=== PATIENT | male | born 1950 | race Caucasian/White ===

== ENCOUNTER 2024-08-10 09:12 | Emergency (ER) | payer MEDICARE, BC, SELFPAY ==
--- OUTSIDE RECORDS SUMMARY | 2024-08-10 09:16 | XMS_ITS | Clinical Summary ---
Author Organization [facility] Address [address] [place] [address] Care Team Providers Care Database Developer Name Role Phone Armando Clark MD Primary Care Provider [phone] Allergies Active Allergy Reactions Criticality Noted Date Comments Atenolol Bradycardia 11/05/2009 Medications multivitamin (MVI) tablet Take 1 tablet by mouth once daily. 0 01/06/20 14 Active Calcium carbonate (OYSTERSHELL CALCIUM) 500 mg tabletIndications :Vitamin D deficiency Take 1 tablet by mouth once daily. 0 12/14/19 15 Active b complex vitamins (VITAMIN B COMPLEX) capsule Take 1 capsule by mouth once daily. 0 06/29/19 18 Active sennosides (SENNA) 8.6 mg tabletIndications :Other constipation Take 1 tablet by mouth once daily. 0 10/27/19 18 Active polyethylene glycol (MIRALAX) 17 g powder for solutionIndicatio ns:Other constipation Take 17 g by mouth once daily if needed for Constipation. 0 10/27/19 18 Active cholecalciferol (Vitamin D) 1,000 unit tabletIndications :Vitamin D deficiency Take 1 Tablet (1,000 units) by mouth once daily. 0 07/02/19 22 Active albuterol-ipratro pium (DUONEB) (2.5-0.5 mg) in 3 mL NEBULIZATION solutionIndicatio ns:COPD with chronic bronchitis (HC) Inhale 3 mL via a nebulizer every 6 hours if needed for Wheezing 1st choice. Use at least twice daily. 180 mL 3 08/19/19 22 Active diphenhydrAMINE (BENADRYL) 50 mg capsule Take 1 Capsule (50 mg) by mouth every 6 hours if needed. 0 09/09/19 22 Active docusate (COLACE) 100 mg capsule Take 1 Capsule (100 mg) by mouth 2 times daily if needed for Constipation. 0 01/27/20 22 Active lidocaine (Blue-Emu Lidocaine Patch) 4 % topical patch Apply to intact skin to cover most painful area for max 12hr per 24hr period. 0 01/27/20 22 Active ascorbic acid, vitamin C, (Vitamin C) 500 mg tablet Take 1 Tablet (500 mg) by mouth once daily. 0 07/09/19 23 Active medication order composer Oxygen concentrator Given by Dr. Nicholson, per patient, while at the hospital 0 07/09/19 23 Active HYDROcodone-aceta minophen (5-325 mg/tablet)Indicat ions:Chronic midline low back pain without sciatica Take 1 Tablet by mouth every 4 hours if needed for Pain. Max acetaminophen dose: 4000mg in 24 hrs. 30 Tablet 03/17/19 24 Active apixaban (ELIQUIS) 5 mg tabletIndications :New onset atrial fibrillation (HC) Take 1 Tablet (5 mg) by mouth two times daily. 180 Tablet 3 01/31/20 24 Active allopurinoL (ZYLOPRIM) 300 mg tabletIndications :Gouty arthritis of toe Take 1 Tablet (300 mg) by mouth once daily. 90 Tablet 3 01/31/20 24 Active atorvastatin (LIPITOR) 10 mg tabletIndications :Other hyperlipidemia Take 1 Tablet (10 mg) by mouth at bedtime. 90 Tablet 3 01/31/20 24 Active dilTIAZem CD (CARDIZEM CD) 180 mg extended release 24 hr capsuleIndication s:New onset atrial fibrillation (HC) Take 1 Capsule (180 mg) by mouth once daily. 90 Capsule 3 01/31/20 24 Active levothyroxine (SYNTHROID) 100 mcg tabletIndications :Other specified hypothyroidism Take 1 Tablet (100 mcg) by mouth before breakfast. 90 Tablet 3 01/31/20 24 Active losartan (COZAAR) 100 mg tabletIndications :Essential hypertension Take 1 Tablet (100 mg) by mouth once daily. 90 Tablet 3 01/31/20 24 Active meloxicam (MOBIC) 7.5 mg tabletIndications :Primary osteoarthritis of both wrists Take 1 Tablet (7.5 mg) by mouth once daily. 90 Tablet 3 01/31/20 24 Active potassium chloride (KLOR-CON M20) 20 mEq extended-release tablet (part/cryst)Indic ations:New onset atrial fibrillation (HC) Take 1 Tablet (20 mEq) by mouth two times daily with meals. 180 Tablet 3 01/31/20 24 Active terazosin (HYTRIN) 5 mg capsuleIndication s:Essential hypertension Take 1 Capsule (5 mg) by mouth once daily in the morning. 90 Capsule 3 01/31/20 24 Active triamterene-hydro chlorothiazide, 75-50 mg, (MAXZIDE) 75-50 mg tabletIndications :Essential hypertension Take 1 Tablet by mouth once daily in the morning. 90 Tablet 3 01/31/20 24 Active CPAPIndications:O SA on CPAP RESMED CPAP (E0601) machine for home use at pressure: 12.6 cmw, Choice of mask (A7030 or A7034) w/full face cushion (A7031) x1/mo, nasal cushion (A7032) x2/mo, or nasal pillows (A7033) x 2/mo; Length of Need: 99 months; Frequency of use: Daily 1 Each 04/25/19 25 Active torsemide 10 mg tabletIndications :New onset atrial fibrillation (HC) Take 1 Tablet (10 mg) by mouth once daily. 90 Tablet 08/10/19 25 Active torsemide (DEMADEX) 10 mg tabletIndications :New onset atrial fibrillation (HC) Take 1 Tablet (10 mg) by mouth once daily. 90 Tablet 3 01/31/20 24 025 Discontin ued(*Avai lability/ Formulary change/Co st of medicatio n) Active Problems Problem Noted Date Diagnosed Date Chronic systolic congestive heart failure 2022 Longstanding persistent atrial fibrillation 12/31 Overview (07/08/2022): Started in 2020. COPD with chronic bronchitis 07/09/2021 J LUIS 03/14/2003 AHI-118 05/17/2017 Hypothyroidism (acquired) 06/11/2016 Status post total hip replacement, right 016 Primary osteoarthritis of right hip 10/29/2015 Controlled substance agreement signed 09/26/2015 Overview (01/31/2016): Prescriber: Dr. Cachorro Hogue, Secondary Dr. Eric Sanchez Ok to fill at same amount/dose/frequency in my absence. Controlled substance agreement: 09/26/15 [employer]ie [employer] query on 01/30/16 was acceptable. Last UDS on (none on file). Elevated TSH 08/01/2015 Primary osteoarthritis of both knees 08/01/2015 Morbid obesity 12/13/2014 Gouty arthritis of toe 12/13/2014 Vitamin D deficiency 12/13/2014 Mixed hyperlipidemia 08/14/2010 Back pain 10/09/2009 Unspecified venous (peripheral) insufficiency Dermatophytosis of the body 07/13/2006 Essential hypertension Unspecified sleep apnea Resolved Problems Problem Noted Date Diagnosed Date Resolved Date Anticoagulation monitoring, special range 11/25/2015 12/09/2015 Essential hypertension, benign 12/13/2014 10/29/2015 Gout, unspecified 04/29/2009 12/13/2014 Bundle branch block, unspecified 07/13/2006 11/07/2009 Overview (07/13/2006): incomplete bundle brand block Tobacco use disorder 007 Encounters Date Type Department Care Team Description 08/09/2024 Telephone [facility] [address] [place] [address] Armando Clark MD Refill Request (Hytrin) from Last 3 Months Immunizations Immunization Administration Dates Next Due COVID-19 VACCINE SPIKEVAX (M ODERNA 50MCG/0.5ML) 12YO+ PFS 03/17/2023 COVID-19 vaccine (Moderna Toribio hermes 50mcg/0.25mL) PF, MDV 12/22/2021 COVID-19 vaccine (Pfizer-Bio NTech 30mcg/0.3mL) 12YO+ ABENA-SUCROSE PF, MDV 07/01/2021 COVID-19 vaccine (Pfizer-Bio NTech 30mcg/0.3mL) PF, MDV 12/18/2020,05/24/2020,05/03/2020 Hepatitis B, Unspecified 12/05/1990,06/13/1990,0 05/09/1990 Influenza, High-dose Inactivated 12/13/2023,11/29 Influenza, High-dose Quadriv alent Inactivated 12/01/2022,12/03/2021,11/22/2020,2019 Influenza, IIV3 (Age >=3 years) 12/29/19 13,11/27/2011,12/05/2009,2008,11/14/2008,12/12/2007,04/05/2006 Influenza, IIV4 12/03/2014 Influenza, Inactivated AIIV4 (Age 65+ Years) Preserv Free 12/08/2021 Influenza, Inactivated IIV3 (Age 65+ Years) Preserv Free 11/14/2018,03/11/2017 Pneumococcal Poly,23-Valent (Pneumovax) 11/14/2018 Pneumococcal conj 13-Valent (Prevnar 13) 08/01/2015 Td (Age >=7 Years) 04/05/2006 Tdap 02/10/2012 Tuberculin (PPD) 03/10/2007 Zoster (Zostavax-ZVL, live) 12/28/2012 Family History Medical History Relation Name Comments Good Health Brother Heart Disease Father at 55 fro m [place] Cancer Mother unknown Good Health Mother Relation Name Status Comments Brother Father (Age 55) [place] Mother (Age 85) Paternal Grandfather (Age 53) sharon ng ca Paternal Uncle (Age 50s) lung ca Social History Tobacco Use Types Packs/Day Years Used Date Smoking Tobacco: Former Cigarettes 1 32 1 971 - 03/01/2002 Smokeless Tobacco: Never Tobacco Cessation:Counseling Given: Not Answered Alcohol Use Standard Drinks/Week Comments Yes 9 (1 standard drink = 0.6 oz pure alcohol) Wednesday, Wednesday, Wednesday (1 beer and 2-3 drinks) PHQ-2 Answer Date Recorded PHQ-2 TOTAL SCORE 0 03/17/2023 Social Connections Answer Date Recorded Do you often feel lonely or isolated from those around you? 0 03/17/2023 Alcohol Use Answer Date Recorded How often do you have a drink containing alcohol ? 3 03/17/2023 How many drinks containing a lcohol do you have on a typical day when you are drinking? 1 03/17/2023 How often do you have five or more drinks on one occasion? 0 03/17/2023 Financial Resource Strain Answer Date R ecorded Difficulty of Paying Living Expenses 3 03/17/2023 Difficulty of Paying Living Expenses Not on file 03/17/2023 Food Insecurity Answer Date Recorded Do you worry your food will run out before you are able to buy more? 1 03/17/2023 Transportation Needs Answer Date Record ed Does lack of transportation keep you from medica l appointments? 1 03/17/2023 Does lack of transportation keep you from work, meetings or getting things that you need? 1 03/17/2023 Housing Stability Answer Date Recorded What is your housing situation today? 1 03/17/2023 Utilities Answer Date Recorded Do you have trouble paying f or utilities (for example, heat, electricity, water, phone)? 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[employer] Not on file N ot on file Not on file Obstetrics History Last Filed Vital Signs Vital Sign Reading Time Taken Comments Blood Pressure 133/70 04/25/2024 10:27 AM TIME LOCK EXPERT Pulse 87 04/25/2024 10:27 AM TIME LOCK EXPERT Temperature 36.3 C (97.3 F) 01/31/2024 11:12 AM TIME LOCK EXPERT Respiratory Rate - - Oxygen Saturation 95% 04/25/2024 10: 27 AM TIME LOCK EXPERT Inhaled Oxygen Concentration - - Weight 171.7 kg (378 lb 9.6 oz) 024 11:06 AM TIME LOCK EXPERT Height 168.9 cm (5' 6.5) 09/22/2023 7:53 AM CDT Body Mass Index 60.19 09/22/2023 7:53 AM CDT Plan of Treatment Health Maintenance Due Date Last Done Comments RSV vaccine for adults or (1 - Risk 60-74 years 1-dose series) 2010 Zoster (shingles) series for age 50+ (2 of 3) 02/22/2013 12/28/2012 AAA screening age 65-74 06/13/2015 Medicare Wellness for age 65+ 06/13/2015 Tetanus booster 02/09/2022 02/10/2012, 04/05/2006 Depression screening for age 12+ 03/17/2024 03/17/2023, 01/28/2022, 01/26/2022, Additional history exists COVID-19 vaccine series (2023- season) 2024 01/18/2024, 03/17/2023, 12/22/2021, Additional history exists BMI (ht and wt on same day) for age 18+ 09/21/2024 09/22/2023, 03/09/2023, 07/08/2022, Additional history exists Fecal testing sDNA-FIT ([place] guard) for age 45-75 07/27/2025 07/27/2022 Lipids for age 45-75 01/19/2029 01/20/2024, 03/09/2023, 06/23/2022, Additional history exists Hepatitis B series for 19+ Completed 12/05, 06/13/1990, 05/09/1990 Tdap Completed 02/10/2012 Hepatitis C screening for ag e 18-79 Completed 11/14/2018 Pneumococcal series for age 50+ Completed 9, 08/01/2015 Influenza Vaccine Completed 12/13/2023, , 11/14/2018, Additional history exists Procedures Procedure Name Priority Date/Time Associated Diagnosis Comments LIPID PANEL W REFLEX MEASURED LDL Routine 01/20/2024 11:35 AM TIME LOCK EXPERT Mixed hyperlipidemia SDNA-FIT EXTERNAL (COLOGUARD) Routine 07/27/2022 10:00 PM CDT Screening for colon cancer ANTI HCV Routine 11/14/2018 3:10 PM CDT Need for hepatitis C screening test from Last 3 Months or Most Recently Relevant to Health Maintenance Results * LIPID PANEL W REFLEX MEASURED LDL (01/20/2024 11:35 AM TIME LOCK EXPERT) CHOLESTEROL, TOTAL 124 <200 mg/dL [facility] HDL CHOLESTEROL 45 > OR = 40 mg/dL [facility] TRIGLYCERIDES 134 <150 mg/dL [facility] LDL-CHOLESTEROL 57 mg/dL (calc) [employer] Comment: Reference range: <100 Desirable range <100 mg/dL for primary prevention; <70 mg/dL for patients with CHD or diabetic patients with > or = 2 CHD risk factors. LDL-C is now calculated using the Pelon calculation, which is a validated novel method providing better accuracy than the Friedewald equation in the estimation of LDL-C. Santo SS et al. JEANNIE. 2013;310(19): 4225-9413 (http://education.Twitpay/faq/WYF356) CHOL/HDLC RATIO 2.8 <5.0 (calc) [employer] lowell Benz NON HDL CHOLESTEROL 79 <130 mg/dL (calc) [employer]z Comment: For patients with diabetes plus 1 major ASCVD risk factor, treating to a non-HDL-C goal of <100 mg/dL (LDL-C of <70 mg/dL) is considered a therapeutic option. Blood BLOOD SPECIMEN / Unknown 01/20/2024 11:35 AM TIME LOCK EXPERT 01/20/2024 11:36 AM TIME LOCK EXPERT us Armando Clark MD CHEMISTRY Final Resu lt [facility] [address] [place] [address], [facility] [address] [place] [address] * SDNA-FIT EXTERNAL (COLOGUARD) (07/27/2022 10:00 PM CDT) NONINV COLON CA DNA+OCC BLD SCRN STL-IMP Negative Negative 08/03/2022 8:50 AM CDT [facility] (CLIA #:[id number]) Comment: NEGATIVE TEST RESULT. A negative Cologuard result indicates a low likelihood that a colorectal cancer (CRC) or advanced adenoma (adenomatous polyps with more advanced pre-malignant features) is present. The chance that a person with a negative Cologuard test has a colorectal cancer is less than 1 in 1500 (negative predictive value >99.9%) or has an advanced adenoma is less than 5.3% (negative predictive value 94.7%). These data are based on a prospective cross-sectional study of 10,000 individuals at average risk for colorectal cancer who were screened with both Cologuard and colonoscopy. (Linda Douglas al, N Engl J Med 2014;370(14):5660-5745) The normal value (reference range) for this assay is negative. COLOGUARD RE-SCREENING RECOMMENDATION: Periodic colorectal cancer screening is an important part of preventive healthcare for asymptomatic individuals at average risk for colorectal cancer. Following a negative Cologuard result, the [place] [employer] Society and U.S. Multi-Society Task Force screening guidelines recommend a Cologuard re-screening interval of 3 years. References: [place] [employer] Guideline for Colorectal Cancer Screening: https://www.cancer.org/cancer/xsimz-vztnaf-npodnu/zepaulvla-ntjgzwtxh-nwlwsxe/ac s-rec ommendations.html.; Giovani DK, Cheyenne ZEPEDA, Nicolette RizoK, Colorectal Cancer Screening: Recommendations for Physicians and Patients from the U.S. Multi-Society Task Force on Colorectal Cancer Screening , Am J Gastroenterology 2017; 112:0145-3289. TEST DESCRIPTION: Composite algorithmic analysis of stool DNA-biomarkers with hemoglobin immunoassay. Quantitative values of individual biomarkers are not reportable and are not associated with individual biomarker result reference ranges. Cologuard is intended for colorectal cancer screening of adults of either sex, 45 years or older, who are at average-risk for colorectal cancer (CRC). Cologuard has been approved for use by the U.S. FDA. The performance of Cologuard was established in a cross sectional study of average-risk adults aged 50-84. Cologuard performance in patients ages 45 to 49 years was estimated by sub-group analysis of near-age groups. Colonoscopies performed for a positive result may find as the most clinically significant lesion: colorectal cancer [4.0%], advanced adenoma (including sessile serrated polyps greater than or equal to 1cm diameter) [20%] or non- advanced adenoma [31%]; or no colorectal neoplasia [45%]. These estimates are derived from a prospective cross-sectional screening study of 10,000 individuals at average risk for colorectal cancer who were screened with both Cologuard and colonoscopy. (Linda Kelly et al, N Engl J Med 2014;370(14):1590-5708.) Cologuard may produce a false negative or false positive result (no colorectal cancer or precancerous polyp present at colonoscopy follow up). A negative Cologuard test result does not guarantee the absence of CRC or advanced adenoma (pre-cancer). The current Cologuard screening interval is every 3 years. ([place] [employer] Society and U.S. Multi-Society Task Force). Cologuard performance data in a 10,000 patient pivotal study using colonoscopy as the reference method can be accessed at the following location: www.[employer]/results. Additional description of the Cologuard test process, warnings and precautions can be found at www.[employer]ard.[employer]. Stool specimen (specimen) (Rectum) 07/27/2022 10:00 PM CDT 07/29/2022 10:07 AM CDT us Armando Clark MD URINE Final Resu lt [facility] (CLIA #:[id number]) [address] [place] [address], * ANTI HCV (11/14/2018 3:10 PM CDT) HEPATITIS C ANTIBODY Non-React raghav Non-React raghav 11/14/2018 7:46 PM CDT [facility] Comment:Antibodies to HCV no t detected; does not exclude the possibility of exposure to HCV. Blood BLOOD SPECIMEN / Unknown Venipuncture / Unknown 11/14/2018 3:10 PM CDT 11/14/2018 3:14 PM CDT us Cachorro Houge MD SEND OUTS Final Re sult [facility] [address] [place] [address], [place] from Last 3 Months or Most Recently Relevant to Health Maintenance Insurance [facility] MEDICARE [place] ONLY MEDICARE PART B HB ONLY 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
--- NOTE | 2024-08-10 09:41 | CRLHL7_ITS ---
For Patients: As a result of the Century Cures Act, medical imaging exams and procedure reports are released immediately into your electronic medical record. You may view this report before your referring provider. If you have questions, please contact your health care provider. INDICATION: Lightheaded and vertigo. COMPARISON: None. TECHNIQUE: CT of the brain / head without intravenous contrast. Multiplanar axial, coronal, and sagittal reformats were reconstructed. FINDINGS: No intracranial hemorrhage. Ectatic dilated basilar artery measuring up to about 7 millimeters on this noncontrast examination. See series 7, image 54. Atherosclerotic plaques. No acute or subacute cortically based infarct. Scattered white matter hypodensities may be related to chronic microvascular ischemia. No mass or mass effect. Normal ventricles. No skull fractures. No worrisome focal bone lesion. The mastoids and middle ears are patent. IMPRESSION: Atherosclerosis. Ectatic dilated basilar artery. Please note that all CT scans at this facility use dose modulation, iterative reconstruction, and/or weight-based dosing when appropriate to reduce radiation dose to as low as reasonably achievable. Dictated by Deanna Pugh MD @ 08/10/2024 10:45:29 AM (Electronically Signed)
--- NOTE | 2024-08-10 09:41 | CRLHL7_ITS ---
For Patients: As a result of the Century Cures Act, medical imaging exams and procedure reports are released immediately into your electronic medical record. You may view this report before your referring provider. If you have questions, please contact your health care provider. INDICATION: Acute stroke. TECHNIQUE: CTA neck with contrast bolus tracking, 3D angiographic rendering using maximum intensity projection (MIP) and images permanently archived. FINDINGS: There is minor carotid atherosclerosis bilaterally. There is no significant carotid artery stenosis or dissection. There is no significant vertebral artery stenosis or dissection. The soft tissues of the neck are within normal limits. The cervical spine is in normal alignment. Degenerative changes are noted in the cervical spine. IMPRESSION: No significant carotid or vertebral artery stenosis or dissection. Please note that all CT scans at this facility use dose modulation, iterative reconstruction, and/or weight-based dosing when appropriate to reduce radiation dose to as low as reasonably achievable. Dictated by Roosevelt Oneal MD @ 08/10/2024 12:02:17 PM (Electronically Signed)
--- NOTE | 2024-08-10 09:41 | CRLHL7_ITS ---
For Patients: As a result of the Century Cures Act, medical imaging exams and procedure reports are released immediately into your electronic medical record. You may view this report before your referring provider. If you have questions, please contact your health care provider. INDICATION: Acute stroke. TECHNIQUE: CTA head with contrast bolus tracking, 3D angiographic rendering using maximum intensity projection (MIP) and images permanently archived. FINDINGS: There is scattered intracranial atherosclerotic disease. There is marked tortuosity and ectasia of the intracranial vasculature. There is vertebrobasilar dolichoectasia with the basilar artery approaching 7 mm in maximum diameter. There is no large vessel occlusion or significant intracranial stenosis. No saccular aneurysm is identified. IMPRESSION: Vertebrobasilar dolichoectasia. No acute intracranial abnormality at CTA. Please note that all CT scans at this facility use dose modulation, iterative reconstruction, and/or weight-based dosing when appropriate to reduce radiation dose to as low as reasonably achievable. Dictated by Roosevelt Oneal MD @ 08/10/2024 12:00:48 PM (Electronically Signed)
[2024-08-10 09:43] VITALS: BP 117/76; PULSE 62; RESP 16; TEMP 36.5; O2SAT 91; BMI 51.2
[2024-08-10 09:44] VITALS: O2SAT 91
--- NOTE | 2024-08-10 09:51 | ED.NEUROSD ---
HPI - Neuro Symptoms/Deficit General Time Seen by Provider: 09:51 Date Seen: 08/10/24 Chief Complaint: Neuro Symptoms/Altered Deficit Stated Complaint: light headed- Time Seen by Provider: 08/10/24 09:15 Source: patient and RN notes reviewed Mode of arrival: ambulatory Limitations: no limitations History of Present Illness HPI Narrative: This 74-year-old male is ambulatory into the ED from his work with concern of an episode last night that he thought might have been a stroke. He got up to use the bathroom around 130. He went to the bathroom without difficulty, came back and sat on the edge of his bed. He rolled his head and neck around, just felt like he needed to do this. He went to lay down on his left lateral side and felt like he was falling at a high velocity. He looked at the clock with the L ED lytes but could not see them, they were more like slashes of lines. This lasted about 15 seconds and then resolved. He slept until 5:00 a.m.. Got up to go to work. He was lifting 40 lb boxes at work but just did not feel right. He has no residual symptoms but just felt off and decided to come get checked out. He is anticoagulated with Eliquis for underlying atrial fibrillation, has missed no doses. States he felt no chest symptoms, no chest pain, shortness of breath with any of his symptoms. He has never had any episode of vertigo before. He used vertigo as the term for his symptoms in his own words. He does have COPD as well as obstructive sleep apnea, uses CPAP with 2 L oxygen at night. Related Data Home Medications ?Medication ?Instructions ?Recorded ?Confirmed allopurinol 300 mg tablet 300 mg PO DAILY 08/10/24 08/10/24 apixaban 5 mg tablet (Eliquis) 5 mg PO BID 08/10/24 08/10/24 atorvastatin 10 mg tablet 10 mg PO QPM 08/10/24 08/10/24 diltiazem HCl 180 mg 180 mg PO DAILY 08/10/24 08/10/24 capsule,extended release 24 hr levothyroxine 100 mcg tablet 100 mcg PO QAM 08/10/24 08/10/24 losartan 100 mg tablet 100 mg PO DAILY 08/10/24 08/10/24 meloxicam 7.5 mg tablet 7.5 mg PO DAILY 08/10/24 08/10/24 potassium chloride 20 mEq 20 meq PO BID 08/10/24 08/10/24 tablet,extended release(part/cryst) (Klor-Con M) terazosin 5 mg capsule 5 mg PO QAM 08/10/24 08/10/24 torsemide 10 mg tablet 10 mg PO DAILY 08/10/24 08/10/24 triamterene 75 1 tab PO QAM 08/10/24 08/10/24 mg-hydrochlorothiazide 50 mg tablet Previous Rx's ?Medication ?Instructions ?Recorded cephalexin 500 mg capsule 2,000 mg (4 x 500 mg) PO ONCE #8 04/11/24 caps Allergies Allergy/AdvReac Type Severity Reaction Status Date / Time No Known Drug Allergies Allergy Verified 08/10/24 09:32 Review of Systems Status of ROS: Reports: 6 or more systems reviewed and unremarkable except as noted in History and below [facility] Medical History (Updated 08/10/24 @ 12:30 by Joanna Hernandez MD) 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 - Infection and inflammatory reaction due to other internal joint prosthesis, initial encounter (ICD-10) ?Z96.649 - Presence of unspecified artificial hip joint (ICD-10) Surgical History (Updated 03/24/22 @ 13:44 by Charlotte Hunt ~ RN, RN) S/P total right hip arthroplasty ?Z96.641 - Presence of right artificial hip joint (ICD-10) Social History Smoking Status: Never smoker Do you use any of these nicotine containing products: None How often do you have a drink containing alcohol: 2-4 times a month AUDIT-C Alcohol total score: 2 Non-prescribed substance use: denies use service: No Exam Const: Vital Signs, click to edit/add: Vital Signs - 24 hr 08/10/24 09:43 08/10/24 09:44 08/10/24 11:00 Temperature 97.7 F Pulse Rate [Pulse Oximeter] 62 61 Respiratory Rate 16 20 Blood Pressure [Ri ght Upper Arm] 117/76 117/78 Pulse Oximetry 91 91 91 Oxygen Delivery Me thod Room Air Room Air Documenting provider has reviewed patient's vital signs: yes Course Course ED Course: Patient does have atrial fibrillation albeit anticoagulated. Still would conceivably make him at risk for cerebrovascular disease. Will have him do head CT and CT angiography. With him demonstrating what he was doing with his head neck and stretching and leaning his head back, do feel looking at the vessels in ruling out etiology like dissection is important. I do think dissection is less likely given that there is no pain and he had a brief episode of symptoms for 15 seconds. This ultimately may have been peripheral vertigo. He is back to baseline at this time. Will also do appropriate labs. Will get EKG, cardiac monitoring to ensure underlying rhythm, sounds to be in atrial fibrillation on auscultation. He does not believe that he has missed any doses of his anticoagulant which would make thromboembolic DOG WARDEN disease from atrial fibrillation much less likely. Reevaluation(s) Time of Reevaluation #1: 11:08 Reevaluation #1: Patient is having repeat CT angio of head neck due to no contrast infiltration on 1st set of images. Radiologist has recommended repeat. They are going to increase the amount of IV contrast to try to rectify this. Time of Reevaluation #2: 12:20 Reevaluation #2: Patient up ambulatory to and from the bathroom. He is feeling good. Reviewed with him that we are awaiting discussion with Neurology. Time of Reevaluation #3: 12:28 Reevaluation #3: Did review patient's CT images including the angiography. We do have a full formal report. 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 Did review with him that he could go into a surveillance program, provided him a copy of the imaging report where the phone number was on. We also reviewed the incidental finding of severely dilated main pulmonary artery, could indicate pulmonary hypertension. This could be further evaluated and worked up outpatient. His symptoms are very likely from benign positional vertigo. Consultations Consultation #1: Have spoken with Dr. Méndez stroke Neurology. He agrees that no further workup is needed. Even if patient did have a TIA, MRI is not going to show this. Patient is anticoagulated already on Eliquis. Patient is back to baseline without further symptoms. He does recommend that patient get referred for vestibular therapy, believes he will likely have further episodes and would be beneficial for him to have this. We did review the incidental findings. He has no further recommendations. Will discharge to home at this time. Time: 12:44 Vital Signs Vital signs: Initial Vital Signs Temperature 97.7 F 08/10/24 09:43 Temperature Source Temporal Artery Scan 08/10/24 09:43 Pulse Rate 62 08/10/24 09:43 Pulse Rhythm Regularly Irregular 08/10/24 09:43 Pulse Strength 3+ Normal 08/10/24 09:43 Respiratory Rate 16 08/10/24 09:43 Blood Pressure 117/76 08/10/24 09:43 Blood Pressure Mean 89 08/10/24 09:43 Blood Pressure Position Sitting 08/10/24 09:43 Pulse Oximetry 91 08/10/24 09:43 Oxygen Delivery Method Room Air 08/10/24 09:43 Vital Signs Temperature 97.7 F 08/10/24 09:43 Pulse Rate 62 08/10/24 09:43 Respiratory Rate 16 08/10/24 09:43 Blood Pressure 117/76 08/10/24 09:43 Pulse Oximetry 91 08/10/24 09:43 Oxygen Delivery Method Room Air 08/10/24 09:43 Temperature 97.7 F 08/10/24 09:43 Pulse Rate 61 08/10/24 11:00 Respiratory Rate 20 08/10/24 11:00 Blood Pressure 117/78 08/10/24 11:00 Pulse Oximetry 91 08/10/24 11:00 Oxygen Delivery Method Room Air 08/10/24 11:00 MDM - Neuro Symptoms/Deficit Lab Data Attestation: I reviewed the patient's lab results. Labs: Lab Results 08/10/24 08/10/24 Range/Units 09:55 10:14 WBC 7.68 (4.50-11.00) K/uL RBC 4.32 (4.30-5.90) m/uL Hgb 13.7 (13.5-17.5) gm/dL Hct 42.3 (37.0-53.0) % MCV 98 (80-100) fL MCH 32 (26-34) pg MCHC 32 (32-36) gm/dL RDW Coeff of Gabriel 14.6 (11.5-15.5) % Plt Count 182 (140-440) K/uL Neut % (Auto) 64.1 (42.0-72.0) % Lymph % (Auto) 22.3 (20-44) % [place] % (Auto) 9.1 (0.0-11.0) % Eos % (Auto) 3.6 (0.0-7.0) % Baso % (Auto) 0.5 (0.0-3.0) % Neut # (Auto) 4.92 (1.7-7.0) K/uL Lymph # (Auto) 1.71 (0.90-2.90) K/uL [place] # (Auto) 0.70 (0.00-0.90) K/UL Eos # (Auto) 0.28 (0.00-0.50) K/uL Baso # (Auto) 0.04 (0.00-0.30) K/uL Abs Immat Gran (auto) 0.03 (0.00-0.30) K/uL Imm/Tot Granulo (auto) 0.4 % Sodium 139 (135-149) mmol/L Potassium 3.7 (3.6-5.1) mmol/L Chloride 99 (96-114) mmol/L Carbon Dioxide 30 (20-32) mmol/L Anion Gap 10 (7-15) mEq/L BUN 26 (7-30) mg/dL Creatinine 1.2 (0.5-1.5) mg/dL Estimated Creat Clear 54.01 Estimated GFR 63 ml/min Glucose 95 (60-115) mg/dL Calcium 9.4 (8.4-10.6) mg/dL Total Bilirubin 1.0 (0.1-1.5) mg/dL AST 29 (12-35) U/L ALT 21 (4-50) U/L Alkaline Phosphatase 52 (40-150) U/L Total Protein 7.3 (6.0-8.3) g/dL Albumin 4.4 (3.3-5.0) g/dL POC Creatinine 1.3 (0.6-1.3) mg/dl Imaging Data CT scan - head: Attestation: I have reviewed the pertinent imaging results. Radiologist's impression: Patient: CAMILO QUIJANO Facility:?[facility] Patient ID:?[id number] Site Patient ID:?[id number]. Site :?1950 Study:?CT-Head WITHOUT-08/10/2024 10:39:44 AM Ordering Physician:Sammy Marshall Final Report: INDICATION: Lightheaded and vertigo. COMPARISON: None. TECHNIQUE: CT of the brain / head without intravenous contrast. Multiplanar axial, coronal, and sagittal reformats were reconstructed. FINDINGS: No intracranial hemorrhage. Ectatic dilated basilar artery measuring up to about 7 millimeters on this noncontrast examination. See series 7, image 54. Atherosclerotic plaques. No acute or subacute cortically based infarct. Scattered white matter hypodensities may be related to chronic microvascular ischemia. No mass or mass effect. Normal ventricles. No skull fractures. No worrisome focal bone lesion. The mastoids and middle ears are patent. IMPRESSION: Atherosclerosis. Ectatic dilated basilar artery. Please note that all CT scans at this facility use dose modulation, iterative reconstruction, and/or weight-based dosing when appropriate to reduce radiation dose to as low as reasonably achievable. Dictated by Deanna Pugh MD @ 08/10/2024 10:45:29 AM (Electronic Signature) CT- Other: Attestation: I have reviewed the pertinent imaging results. Radiologist's impression: Patient: CAMILO QUIJANO Facility:?[facility] Patient ID:?[id number] Site Patient ID:?[id number]. Site :?1950 Study:?CT-Head Angio WITH 115 CC ISOVUE 370-08/10/2024 10:44:04 AM Ordering Physician:Sammy Marshall Preliminary Report: COMPARISON: None. IMPRESSION: CTA neck: Limited evaluation of the right common carotid and right vertebral artery origins due to artifact from the adjacent contrast bolus, but there is no visualized critical stenosis or dissection. Severely dilated main pulmonary artery measuring approximately 5.0 cm in diameter, which can be seen in the setting of pulmonary hypertension. CTA head: No large vessel occlusion or dissection. The dominant intracranial left vertebral artery and basilar artery are prominent and tortuous, with the basilar artery measuring up to 0.6 cm (), compatible with vertebrobasilar dolichoectasia. Dictated by Jean Claude Hanley MD @ 08/10/2024 11:34:18 AM Read by:?Jean Claude Hanley MD @08/10/2024 11:35:09 AM Patient: CAMILO QUIJANO Facility:?[facility] Patient ID:?[id number] Site Patient ID:?[id number]. Site :?1950 Study:?CT-Head Angio WITH 115 CC ISOVUE 370-08/10/2024 10:44:04 AM Ordering Physician:?Mary Marshall Final Report: INDICATION: Acute stroke. TECHNIQUE: CTA head with contrast bolus tracking, 3D angiographic rendering using maximum intensity projection (MIP) and images permanently archived. FINDINGS: There is scattered intracranial atherosclerotic disease. There is marked tortuosity and ectasia of the intracranial vasculature. There is vertebrobasilar dolichoectasia with the basilar artery approaching 7 mm in maximum diameter. There is no large vessel occlusion or significant intracranial stenosis. No saccular aneurysm is identified. IMPRESSION: Vertebrobasilar dolichoectasia. No acute intracranial abnormality at CTA. Please note that all CT scans at this facility use dose modulation, iterative reconstruction, and/or weight-based dosing when appropriate to reduce radiation dose to as low as reasonably achievable. Dictated by Roosevelt Oneal MD @ 08/10/2024 12:00:48 PM ----- ADDENDUM ----- ADDENDUM: We would be happy to enroll the patient in our brain aneurysm surveillance program to monitor the vertebrobasilar dolichoectasia, if desired. This could be arranged by calling our neurointerventional coordinator at [phone]. Also, per preliminary report: severely dilated main pulmonary artery measuring approximately 5.0 cm in diameter, which can be seen in the setting of pulmonary hypertension. Roosevelt Oneal MD Neurointerventional Radiology [facility]: [phone] Dictated by Roosevelt Oneal MD @ Aug 10 2024 12:05PM (Electronic Signature) Patient: CAMILO QUIJANO Facility:?[facility] Patient ID:?[id number] Site Patient ID:?[id number]. Site :?1950 Study:?CT-Neck Angio Angio NON ACUTE; WITH 115 CC ISOVUE 37-08/10/2024 10:44:45 AM Ordering Physician:?Suchomel-Roberts Joanna Final Report: INDICATION: Acute stroke. TECHNIQUE: CTA neck with contrast bolus tracking, 3D angiographic rendering using maximum intensity projection (MIP) and images permanently archived. FINDINGS: There is minor carotid atherosclerosis bilaterally. There is no significant carotid artery stenosis or dissection. There is no significant vertebral artery stenosis or dissection. The soft tissues of the neck are within normal limits. The cervical spine is in normal alignment. Degenerative changes are noted in the cervical spine. IMPRESSION: No significant carotid or vertebral artery stenosis or dissection. Please note that all CT scans at this facility use dose modulation, iterative reconstruction, and/or weight-based dosing when appropriate to reduce radiation dose to as low as reasonably achievable. Dictated by Roosevelt Oneal MD @ 08/10/2024 12:02:17 PM (Electronic Signature) ECG Data Attestation: I personally reviewed and interpreted this ECG as follows: (Atrial fibrillation with PVCs seen, rate 86 beats per minute. Nonspecific T-wave changes without any acute ST segment change.) ECG interpretation date: 08/10/24 ECG interpretation time: 09:59 Prior ECG tracings: not available for review Discharge Plan Discharge Clinical Impression: Vertigo, Vertebrobasilar dolichoectasia Patient Disposition: Home, Self-Care Condition: Stable Instructions: Vertigo (ED) Additional Instructions: Have spoken with Stroke Neurology, they do not feel that any further workup is needed at this time, do not need brain MRI. They agree that this is likely peripheral vertigo, do think that you should see physical therapy for vestibular rehab as it is likely you could have further episodes. Your primary care provider certainly can put this referral through. Would also recommend that you take the imaging reports to your primary care provider, need to discuss possibility of pulmonary hypertension and further monitoring for the vertebrobasilar abnormality on the MR imaging. Continue with your current medications, no changes recommended at this time. Activity Level: Activity as Tolerated Prescriptions: No Action terazosin 5 mg capsule 5 mg PO QAM atorvastatin 10 mg tablet 10 mg PO QPM diltiazem HCl 180 mg capsule,extended release 24hr 180 mg PO DAILY torsemide 10 mg tablet 10 mg PO DAILY meloxicam 7.5 mg tablet 7.5 mg PO DAILY levothyroxine 100 mcg tablet 100 mcg PO QAM potassium chloride [Klor-Con M20] 20 mEq tablet,ER particles/crystals 20 meq PO BID allopurinol 300 mg tablet 300 mg PO DAILY triamterene-hydrochlorothiazid 75-50 mg tablet 1 tab PO QAM losartan 100 mg tablet 100 mg PO DAILY Eliquis 5 mg tablet 5 mg PO BID cephalexin 500 mg capsule 2,000 mg PO ONCE Qty: 8 2RF Rx Instructions: Patient has series of dental appointments back to back. Take 4 capsules by mouth, one hour prior to dental appointment. Follow Up/Referrals: Cachorro Hogue MD [Primary Care Provider, Family Practice] Stand Alone Forms: [employer] Info Instructions
[2024-08-10 10:10] LABS: Basophils Absolute Auto 0.04 K/uL (0.00-0.30); Basophils Percent Auto 0.5 % (0.0-3.0); Eosinophils Absolute Auto 0.28 K/uL (0.00-0.50); Eosinophils Percent Auto 3.6 % (0.0-7.0); Hematocrit 42.3 % (37.0-53.0); Hemoglobin* 13.7 gm/dL (13.5-17.5); Immature Granulocytes Abs Auto 0.03 K/uL (0.00-0.30); Immature Granulocytes Pct Auto 0.4 %; Lymphocytes Absolute Auto 1.71 K/uL (0.90-2.90); Lymphocytes Percent Auto 22.3 % (20-44); Mean Corpuscular HGB Conc 32 gm/dL (32-36); Mean Corpuscular Hemoglobin 32 pg (26-34); Mean Corpuscular Volume 98 fL (80-100); Monocytes Percent Auto 9.1 % (0.0-11.0); Neutrophils Absolute Auto 4.92 K/uL (1.7-7.0); Neutrophils Percent Auto 64.1 % (42.0-72.0); Platelet Count* 182 K/uL (140-440); RDW Coefficient of Variation % 14.6 % (11.5-15.5); Red Blood Count 4.32 m/uL (4.30-5.90); White Blood Count* 7.68 K/uL (4.50-11.00)
[2024-08-10 10:12] LABS: Slide Review Reflex No
[2024-08-10 10:18] LABS: Albumin* 4.4 g/dL (3.3-5.0); Chloride* 99 mmol/L (96-114); Sodium* 139 mmol/L (135-149)
[2024-08-10 10:19] LABS: Potassium* 3.7 mmol/L (3.6-5.1)
[2024-08-10 10:21] LABS: Creatinine, Point-of-Care* 1.3 mg/dl (0.6-1.3)
[2024-08-10 10:21] LABS: Alanine Aminotransferase* 21 U/L (4-50); Alkaline Phosphatase* 52 U/L (40-150); Anion Gap 10 mEq/L (7-15); Aspartate Amino Transferase* 29 U/L (12-35); Blood Urea Nitrogen* 26 mg/dL (7-30); Carbon Dioxide* 30 mmol/L (20-32); Creatinine* 1.2 mg/dL (0.5-1.5); Est. Creatinine Clearance* 54.01; Estimated Glomerular Filt Rate 63 ml/min; Total Protein* 7.3 g/dL (6.0-8.3)
[2024-08-10 10:22] LABS: Calcium* 9.4 mg/dL (8.4-10.6); Glucose* 95 mg/dL (60-115)
[2024-08-10 11:00] VITALS: BP 117/78; PULSE 61; RESP 20; O2SAT 91
== END 2024-08-10 13:08 | disposition home or self-care (01) ==
PROVIDERS: Emergency Provider Family Medicine; PCP Family Medicine
DX: G45.0 Vertebro-basilar artery syndrome (principal)
CPT/HCPCS: 36415; 70450; 70496; 70498; 80053; 82565; 85025; 93005; 94761; 99284; 99285; Q9967